=== PATIENT | female | born 1935 | race Caucasian/White ===

== ENCOUNTER 2018-04-24 16:11 | Inpatient (IN) | payer MEDICARE, BC ==
[~2018-04-24] VITALS: Ht 157.5 cm; Wt 63.5 kg
[2018-04-24 16:48] VITALS: BP 142/84
[2018-04-24] MEDS ORDERED: NITROSTAT0.4 MG PO (17:53)
[2018-04-24] MEDS ORDERED: SERTRALINE HCL50 MG PO (17:53)
[2018-04-24] MEDS ORDERED: LEVOTHYROXINE88 MCG PO (18:12)
[2018-04-24] MEDS ORDERED: PREDNISONE5 MG PO (18:12)
[2018-04-24] MEDS ORDERED: ARICEPT5 MG PO (18:12)
[2018-04-24] MEDS ORDERED: CITALOPRAM HBR20 MG PO (18:12)
[2018-04-24] MEDS ORDERED: LABETALOL HCL100 MG PO (18:12)
[2018-04-24] MEDS ORDERED: NAMENDA10 MG PO (18:12)
[2018-04-24] MEDS ORDERED: POTASSIUM CHLO20 ME1 PO (18:12)
[2018-04-24] MEDS ORDERED: ESTRADIOL1 MG PO (18:12)
[2018-04-24] MEDS ORDERED: COMBIVENT RESPIM4 GM IH (18:12)
[2018-04-24 18:17] VITALS: BP 142/84
--- NOTE | 2018-04-24 18:52 | Diagnostic Imaging Report ---
Examination: Single AP view of the chest. COMPARISON: None. INDICATION: Asbestos exposure IMPRESSION: 1. Lines and Tubes: Left upper chest 2 lead cardiac device, with distal tips projecting in the region of the right atrium and right ventricle. 2. Lungs are well-inflated. Mild prominence of the interstitial markings bilaterally, which may reflect chronic interstitial changes. No consolidation or pulmonary edema. 3. Cardiomediastinal silhouette is normal. Pulmonary vasculature is normal. 4. No acute bony abnormalities. Signed by: Dr. Jose D Laura M.D. on 04/24/2018 6:49 PM
[2018-04-24 19:57] LABS: BASOPHILS % 0.2 % (0.0-1.0); EOSINOPHILS % 0.1 % (0.0-6.0); HEMATOCRIT 37.5 % (34.2-44.1); LYMPHOCYTES # (AUTO) 1.3 (1.0-3.2); LYMPHOCYTES % 13.4 % (18.0-39.1); MEAN CORPUSCULAR HGB CONC 34.7 g/dL (31-35); MEAN CORPUSCULAR VOLUME 95.2 fL (81-99); MONOCYTES # (AUTO) 0.3 (0.2-0.8); MONOCYTES % 3.1 % (4.4-11.3); NEUTROPHILS # (AUTO) 8.2 (2.1-6.9); NEUTROPHILS % 82.6 % (38.7-80.0); PLATELET COUNT 261 x10e3/uL (140-360); RED BLOOD COUNT 3.94 x10e6/uL (3.6-5.1)
[2018-04-24 20:00] VITALS: BP 174/96
[2018-04-24 20:19] LABS: ALBUMIN 3.2 g/dL (3.5-5.0); ALBUMIN/GLOBULIN RATIO 1.1 (0.8-2.0); ANION GAP 14.2 mmol/L (8-16); CALCIUM 9.2 mg/dL (8.4-10.2); CREATININE, SERUM 1.23 mg/dL (0.57-1.11); POTASSIUM 4.2 mmol/L (3.5-5.1)
[2018-04-25] VITALS (8 sets, daily range): BP systolic 138–189; BP diastolic 63–96
[2018-04-25] MEDS ORDERED: LABETALOL HCL100 MG PO ×2 (01:24→01:32)
[2018-04-25] MEDS ORDERED: POTASSIUM99 M1 PO (01:35)
[2018-04-25] MEDS ORDERED: POTASSIUM CHLO10 ME1 PO (01:41)
[2018-04-25 07:36] LABS: BASOPHILS % 0.2 % (0.0-1.0); EOSINOPHILS # (AUTO) 0.1 (0.0-0.4); EOSINOPHILS % 1.4 % (0.0-6.0); HEMATOCRIT 35.2 % (34.2-44.1); HEMOGLOBIN 12.1 g/dL (12.0-16.0); LYMPHOCYTES # (AUTO) 2.5 (1.0-3.2); LYMPHOCYTES % 28.3 % (18.0-39.1); MEAN CORPUSCULAR HEMOGLOBIN 32.6 pg (28-32); MEAN CORPUSCULAR HGB CONC 34.4 g/dL (31-35); MEAN CORPUSCULAR VOLUME 94.9 fL (81-99); MONOCYTES # (AUTO) 0.6 (0.2-0.8); MONOCYTES % 6.9 % (4.4-11.3); NEUTROPHILS # (AUTO) 5.5 (2.1-6.9); NEUTROPHILS % 62.6 % (38.7-80.0); PLATELET COUNT 242 x10e3/uL (140-360); RED BLOOD COUNT 3.71 x10e6/uL (3.6-5.1); RED CELL DISTRIBUTION WIDTH 13.8 % (11.7-14.4)
[2018-04-25 07:54] LABS: ALBUMIN 3.1 g/dL (3.5-5.0); ALBUMIN/GLOBULIN RATIO 1.3 (0.8-2.0); ANION GAP 15.6 mmol/L (8-16); CALCIUM 9.5 mg/dL (8.4-10.2); CREATININE, SERUM 0.94 mg/dL (0.57-1.11); POTASSIUM 3.6 mmol/L (3.5-5.1)
[2018-04-25] MEDS: PREDNISONE 5 MG TAB PO SCH (09:00)
[2018-04-25] MEDS ORDERED: LABETALOL HCL 100 MG TAB PO SCH ×2 (09:00)
[2018-04-25] MEDS: LEVOTHYROXINE SODIUM 88 MCG TAB PO SCH (09:00)
[2018-04-25] MEDS ORDERED: MEROPENEM 500MG 500 MG in SODIUM CHLORIDE 0.9% 50ML 50 ML IV SCH (09:30)
[2018-04-25] MEDS: MEMANTINE 10 MG TAB PO SCH ×2 (09:30→16:56)
[2018-04-25] MEDS ORDERED: ACETAMINOPHEN 325 MG TAB PO PRN (09:30)
[2018-04-25] MEDS: CITALOPRAM HYDROBROMIDE 20 MG TAB PO SCH (09:30)
[2018-04-25] MEDS: ESTRADIOL 1 MG TAB PO SCH (09:30)
[2018-04-25] MEDS ORDERED: VANCOMYCIN 1GM/NS 250 ML 250 ML IV SCH (10:00)
[2018-04-25] MEDS: SERTRALINE HCL 50 MG TAB PO SCH (10:23)
[2018-04-25] MEDS: SODIUM CHLORIDE 0.9% 1000ML 1,000 ML IV SCH (10:23)
[2018-04-25] MEDS: MEROPENEM 500 MG VIAL IV SCH ×2 (10:23→18:26)
[2018-04-25] MEDS: POTASSIUM CHLORIDE 10 MEQ TABCR PO SCH ×2 (10:24→16:56)
--- NOTE | 2018-04-25 11:32 | History and Physical ---
CHIEF COMPLAINT: Urinary tract infection, whitish discharge. HISTORY OF PRESENT ILLNESS: This is an 82-year-old female who has a past medical history of chronic UTIs in the past, bilateral lymphedema who follows up with Dr. Young urology, presented yesterday to his office with complaint of whitish discharge from her urine output that began about 3 or 4 days ago. Patient was seen and evaluated, and interviewed at bedside. She currently denies any fevers at home, cough or congestion. Reports having a whitish discharge for the last 4 days. She has had chronic UTIs in the past. She is allergic to a lot of oral antibiotics. Patient was sent here for further management and care and initiation of IV antibiotics. Patient was seen and evaluated at bedside. Currently doing well with no other complaints at this time. Her vital signs are stable. REVIEW OF SYSTEMS: Pertinent positive dysuria, whitish discharge in her urine. Pertinent negatives: Denies any chest pain, palpitation, nausea, vomiting, diarrhea, hematuria, frequency, urgency, lightheadedness, dizziness, abdominal pain, headache, shortness of breath, cough, congestion, fever or any other complaints. The rest of the 14-point review of systems are reviewed with the patient and are negative. ALLERGIES: TO ALL ORAL ANTIBIOTICS, CODEINE, IODINE, PREGABALIN, AND SOLIFENACIN. PAST MEDICAL HISTORY: Reports having lymphedema, has hypertension, has hypothyroidism, Alzheimer's, dementia, and depression. PAST SURGICAL HISTORY: Reports none. FAMILY HISTORY: Hypertension and diabetes. SOCIAL HISTORY: No drugs. No alcohol. Does not smoke. Good social support. LABORATORY FINDINGS: White count is 8.7, hemoglobin 12, hematocrit 35, and platelets of 242. Chemistry: Sodium 140, potassium 3.6, chloride 104, bicarb 24, anion gap of 15, BUN is 24, creatinine is 0.9, glucose 94, and calcium 9.5. Total bilirubin is 0.7, AST 14, ALT 10, alk phos 58, total protein 5.4, and albumin 3.1. MICROBIOLOGY: Blood cultures pending Urine culture is pending. IMAGING STUDIES: Chest x-ray shows normal findings. PHYSICAL EXAM VITAL SIGNS: Temperature is 97.4, pulse is 87, respiratory rate is 19, blood pressure is 149/90, and pulse ox 94% on room air. GENERAL: Not in acute distress, alert and oriented times 3, and cooperative on exam. HEENT: Head is normocephalic and atraumatic. Eyes: Pupils are equal, round, and reactive to light bilaterally. Extraocular movements are intact bilaterally. NECK: Supple with good range of motion throughout. No evidence of any erythema or exudates and the posterior pharynx has poor dentition. PULMONARY: Clear to auscultation bilaterally. No wheezing, no rales, no rhonchi, and no crackles appreciated. CARDIOVASCULAR: Positive S1 and S2. No murmurs, rubs, or gallops appreciated. ABDOMEN: Soft, nondistended, and nontender to palpation. Bowel sounds present. MUSCULOSKELETAL: Strength is 5/5 throughout. No evidence of any musculoskeletal deficit on examination. No weakness appreciated. NEUROLOGIC: Cranial nerves II through XII are grossly intact. No evidence of any neurologic deficit on exam. SKIN: Intact. Warm to touch. Good capillary refill. PSYCHIATRIC: Normal affect and mood. EXTREMITIES: She does have trace to 1+ pedal edema and also has lymphedema with bilateral lower extremities redness concerning for cellulitis. IMPRESSIONS 1. Urinary tract infection with concerns of whitish discharge. 2. Bilateral lower extremity cellulitis with lymphedema. 3. History of Alzheimer's dementia. 4. Hypothyroidism. 5. Hypertension. PLAN: At this time, patient will be started on IV vancomycin and Merrem. ID was consulted. Blood and urine cultures are pending. We are going to resume her home medications. Patient refuses labetalol for now. We are going to put her on p.r.n. Vasotec for systolic blood pressure greater than 180. She will be on IV fluids. We are going to put TIMBO hose to the bilateral lower extremities and start her on Lovenox 40 mg subcutaneous daily. She will be on IV fluids as well as the patient looks dehydrated on exam. We are going to repeat labs in the morning. ID has been consulted as well. We will also get PT and OT involved as well in her case. Job#: [id number] STACY
[2018-04-25 11:57] LABS: CLARITY,URINE SL CLOUDY (CLEAR); COLOR,URINE YELLOW (YELLOW); NITRITE,URINE POSITIVE (NEGATIVE)
[2018-04-25 11:58] LABS: BILIRUBIN,URINE NEGATIVE (NEGATIVE); KETONES,URINE NEGATIVE (NEGATIVE); LEUKOCYTE ESTERASE ,URINE 1+ (NEGATIVE); PROTEIN,URINE DIPSTICK NEGATIVE (NEGATIVE); URINE UROBILINOGEN 0.2 mg/dL (0.2 - 1)
[2018-04-25 12:01] LABS: BACTERIA,URINE MODERATE /HPF; EPITHELIAL CELLS,URINE FEW /LPF
[2018-04-25] MEDS: ENOXAPARIN SOD INJ 40 MG/0.4 ML SYR SC SCH ×2 (16:56→16:58)
--- NOTE | 2018-04-25 20:53 | Consultation ---
DATE OF CONSULTATION: INFECTIOUS DISEASE CONSULTATION REASON FOR CONSULTATION: UTI. HISTORY OF PRESENT ILLNESS: This is a patient who is a very pleasant 82-year-old white female with history of chronic UTI in the past, recurrent UTI. Comes in with suprapubic pain, fever, chills. The patient has history of chronic UTI. She has been seen by Dr. Hernandez, urology. Comes in with discomfort in the suprapubic area, urgency, frequency and not feeling well. The patient was admitted. When she came, she had history of UTI, recurrent before. Patient was admitted. Blood cultures ordered. Urine cultures ordered. She is currently lying in bed. PAST MEDICAL HISTORY: UTI and hypertension. PAST SURGICAL HISTORY: She denies. ALLERGIES: NKA. SOCIAL HISTORY: There is no smoking, drug abuse, alcohol use. FAMILY HISTORY: Otherwise noncontributory. REVIEW OF SYSTEMS: HEENT: Negative. PULMONARY: Negative. CARDIAC: Negative. : As above. LABORATORY DATA: Reviewed. Her white count 8.7, hemoglobin 12, hematocrit 35. Her sodium 142, potassium 3.6, creatinine 0.94. PHYSICAL EXAMINATION: GENERAL: She is currently alert, oriented, does not seem to be in acute distress. VITALS: Stable. Currently afebrile. HEENT: She does not appear icteric. NECK: Supple. CHEST: Clear. HEART: S1 and S2. No S3, no S4. No murmur. ABDOMEN: Soft. Bowel sounds present. No tenderness. EXTREMITIES: No edema. SKIN: No rash. IMPRESSION: Probably urinary tract infection. Agree with urine cultures, blood cultures. She has already been started on meropenem. Discontinue vancomycin. Will observe her over next 24 hours. Await culture and sensitivity. Further recommendations to follow. Job#: [id number] EV
[2018-04-25] MEDS: DONEPEZIL HCL 5 MG TAB PO SCH (21:30)
[2018-04-26] VITALS (8 sets, daily range): BP systolic 137–178; BP diastolic 70–83
[2018-04-26] MEDS: MEROPENEM 500 MG VIAL IV SCH ×4 (00:09→18:16)
[2018-04-26] MEDS: SODIUM CHLORIDE 0.9% 1000ML 1,000 ML IV SCH ×3 (00:09→15:00)
[2018-04-26] MEDS: ENALAPRILAT IV INJ 1.25 MG/ML VIAL IV PRN ×2 (04:35→23:59)
[2018-04-26] MEDS: LEVOTHYROXINE SODIUM 88 MCG TAB PO SCH (08:27)
[2018-04-26] MEDS: POTASSIUM CHLORIDE 10 MEQ TABCR PO SCH ×2 (08:27→16:55)
[2018-04-26] MEDS: ESTRADIOL 1 MG TAB PO SCH (08:27)
[2018-04-26] MEDS: PREDNISONE 5 MG TAB PO SCH (08:27)
[2018-04-26] MEDS: CITALOPRAM HYDROBROMIDE 20 MG TAB PO SCH (08:27)
[2018-04-26] MEDS: SERTRALINE HCL 50 MG TAB PO SCH (08:27)
[2018-04-26] MEDS: MEMANTINE 10 MG TAB PO SCH ×2 (08:27→16:55)
[2018-04-26] MEDS: AMLODIPINE BESYLATE 10 MG TAB PO SCH (10:15)
--- NOTE | 2018-04-26 10:28 | Progress Note ---
DATE: April 26, 2018 INTERNAL MEDICINE PROGRESS NOTE SUBJECTIVE: The patient is doing very well today with no complaints. She is tolerating diet well. She is working with physical therapy. Her urine culture is positive for gram-negative rods. OBJECTIVE VITAL SIGNS: Temperature is 98.5, pulse 72, respiratory rate 19, blood pressure was elevated at 170/78, pulse ox is 95%. She is on room air. GENERAL: Not in acute distress. Alert and oriented times 3. Cooperative on examination. HEENT: Head is normocephalic and atraumatic. Eyes: Pupils equal, round and reactive to light bilaterally. Extraocular movements intact bilaterally. NECK: Supple. Good range of motion. Throat with no evidence of any erythema or exudates in the posterior pharynx. Has poor dentition. PULMONARY: Clear to auscultation bilaterally. No wheezing. No rales. No rhonchi. No crackles appreciated. CARDIOVASCULAR: Positive S1 and S2. No murmurs, rubs or gallops appreciated. ABDOMEN: Soft, nondistended and nontender to palpation. Bowel sounds present. MUSCULOSKELETAL: Strength is 5/5 throughout. No evidence of any muscle deficit on examination. No weakness appreciated. NEUROLOGICAL: Cranial nerves II-XII are grossly intact. No evidence of any neurological deficits on exam. SKIN: Intact. Warm to touch. Good cap refill. PSYCHIATRIC: Normal affect and mood. EXTREMITIES: No edema. Good range of motion throughout. LAB FINDINGS: Show a white count of 8.7, hemoglobin 12, hematocrit 35, and platelets of 242,000. Chemistry: Sodium 140, potassium 3.6, chloride 104, bicarb 24, anion gap of 15, BUN is 24, creatinine is 0.94. Calcium is 9.5. LFTs were normal. Urinalysis consistent with UTI. MICROBIOLOGY: Blood cultures negative. No growth to date. Urine culture shows gram-negative bacilli. IMAGING STUDIES: None. IMPRESSION 1. Urinary tract infection, now gram-negative rods: Pending sensitivity. 2. Bilateral lower extremity cellulitis with lymphedema. 3. History of Alzheimer dementia. 4. Hypothyroidism. 5. Hypertension. PLAN: At this time, continue with IV antibiotics of Merrem and vancomycin was discontinued by ID. Will continue to follow ID recommendations. Urine culture is positive pending sensitivity and identification. Blood cultures are negative. Blood pressure was elevated. Will start her on Norvasc 10 mg daily, first dose now. We are going to get a.m. labs. Continue with DVT prophylaxis with Lovenox. Continue with PT and OT. Job#: [id number] RI
[2018-04-26] MEDS: ENOXAPARIN SOD INJ 40 MG/0.4 ML SYR SC SCH (16:56)
[2018-04-26] MEDS: DONEPEZIL HCL 5 MG TAB PO SCH (20:41)
[2018-04-27] VITALS (7 sets, daily range): BP systolic 128–198; BP diastolic 67–91
[2018-04-27 05:03] LABS: BASOPHILS % 0.3 % (0.0-1.0); EOSINOPHILS # (AUTO) 0.3 (0.0-0.4); EOSINOPHILS % 2.6 % (0.0-6.0); HEMATOCRIT 37.9 % (34.2-44.1); HEMOGLOBIN 12.9 g/dL (12.0-16.0); LYMPHOCYTES # (AUTO) 2.6 (1.0-3.2); LYMPHOCYTES % 27.3 % (18.0-39.1); MEAN CORPUSCULAR VOLUME 96.9 fL (81-99); MONOCYTES # (AUTO) 0.7 (0.2-0.8); MONOCYTES % 6.7 % (4.4-11.3); NEUTROPHILS # (AUTO) 6.1 (2.1-6.9); NEUTROPHILS % 62.7 % (38.7-80.0); PLATELET COUNT 253 x10e3/uL (140-360); RED BLOOD COUNT 3.91 x10e6/uL (3.6-5.1); RED CELL DISTRIBUTION WIDTH 14.2 % (11.7-14.4)
[2018-04-27 05:25] LABS: ANION GAP 14.9 mmol/L (8-16); BLOOD UREA NITROGEN 15 mg/dL (7-26); BUN/CREATININE RATIO 19 (6-25); CALCIUM 9.4 mg/dL (8.4-10.2); CARBON DIOXIDE 23 mmol/L (22-29); CHLORIDE 108 mmol/L (98-107); CREATININE, SERUM 0.77 mg/dL (0.57-1.11); EST GLOMERULAR FILTRATION RATE > 60 ML/MIN (60-); GLUCOSE 86 mg/dL (74-118); POTASSIUM 3.9 mmol/L (3.5-5.1); SODIUM 142 mmol/L (136-145)
[2018-04-27] MEDS: MEROPENEM 500 MG VIAL IV SCH ×2 (06:10)
[2018-04-27] MEDS: ENALAPRILAT IV INJ 1.25 MG/ML VIAL IV PRN ×2 (06:10)
[2018-04-27] MEDS: ESTRADIOL 1 MG TAB PO SCH (09:08)
[2018-04-27] MEDS: CITALOPRAM HYDROBROMIDE 20 MG TAB PO SCH (09:08)
[2018-04-27] MEDS: SERTRALINE HCL 50 MG TAB PO SCH (09:09)
[2018-04-27] MEDS: PREDNISONE 5 MG TAB PO SCH (09:09)
[2018-04-27] MEDS: LEVOTHYROXINE SODIUM 88 MCG TAB PO SCH (09:09)
[2018-04-27] MEDS: POTASSIUM CHLORIDE 10 MEQ TABCR PO SCH ×2 (09:09→17:02)
[2018-04-27] MEDS: MEMANTINE 10 MG TAB PO SCH ×2 (09:09→17:02)
[2018-04-27] MEDS: AMLODIPINE BESYLATE 10 MG TAB PO SCH (09:09)
--- NOTE | 2018-04-27 10:17 | Progress Note ---
DATE: April 27, 2018 INTERNAL MEDICINE PROGRESS NOTE SUBJECTIVE: The patient is doing well with no complaints. Her urine culture is positive for E. coli pansensitive. She is not interested in starting on any oral antibiotics, but I convinced her that if we could start something here, we could monitor her over the next 1 or 2 days. If she tolerates it well, then she can go home on that antibiotic. Discussed with nursing staff. OBJECTIVE VITAL SIGNS: Temperature is 97.3. Her blood pressure is 151/80, but it was high overnight. LABS: White count 9.6, hemoglobin 12.9, hematocrit 38, platelets 253. Chemistries: Sodium 142, potassium 3.9, chloride 108, bicarb 23, anion gap 14, BUN 15, creatinine 0.77, glucose 86, calcium 9.4. MICROBIOLOGY: E. coli positive, pansensitive. Blood cultures were negative. IMAGING STUDIES: None. PHYSICAL EXAMINATION GENERAL: Not in acute distress. Alert and oriented times 3. Cooperative on examination. HEENT: Head is normocephalic and atraumatic. Eyes: Pupils are equal and reactive to light bilaterally. Extraocular movements intact bilaterally. NECK: Supple. Good range of motion. THROAT: No evidence of any erythema or exudates in the posterior pharynx, has poor dentition. PULMONARY: Clear to auscultation bilaterally. No wheezing. No rales. No rhonchi. No crackles appreciated. CARDIOVASCULAR: Positive S1 and S2. No murmurs, rubs or gallops appreciated. ABDOMEN: Soft, nondistended and nontender to palpation. Bowel sounds present. MUSCULOSKELETAL: Strength is 5/5 throughout. No evidence of any muscle deficit on examination. No weakness appreciated. NEUROLOGICAL: Cranial nerves II-XII are grossly intact. No evidence of any neurological deficits on exam. SKIN: Intact. Warm to touch. Good cap refill. PSYCHIATRIC: Normal affect and mood. EXTREMITIES: No edema. Good range of motion throughout. IMPRESSION 1. Urinary tract infection with Escherichia coli pansensitive. 2. Bilateral lower extremity cellulitis with lymphedema. 3. History of Alzheimer dementia. 4. Hypothyroidism. 5. Hypertension. PLAN: At this time, I will have ID discuss about oral regimen for her antibiotics. I seemed to convince her, and I told her I will monitor her here while she is in the hospital. She reports she is allergic to every known antibiotic orally. I also discussed this with the nurse. Her blood pressure was elevated overnight, and I will add lisinopril in the eveningtime. Continue with Norvasc. Her labs are stable. Continue with PT and OT. Will continue to monitor very closely. Job#: [id number]
[2018-04-27] MEDS: SODIUM CHLORIDE 0.9% 1000ML 1,000 ML IV SCH ×3 (12:11→22:05)
[2018-04-27] MEDS: CEFTRIAXONE SOD 1 GM VIAL IV SCH ×2 (12:18→22:05)
[2018-04-27] MEDS: CEPHALEXIN 500 MG CAP PO SCH ×2 (12:24→22:05)
[2018-04-27] MEDS: ENOXAPARIN SOD INJ 40 MG/0.4 ML SYR SC SCH (17:00)
[2018-04-27] MEDS: LISINOPRIL 10 MG TAB PO SCH (22:05)
[2018-04-27] MEDS: DONEPEZIL HCL 5 MG TAB PO SCH (22:05)
[2018-04-27] MEDS: ONDANSETRON HCL INJ 2 MG/ML VIAL IV PRN (22:30)
[2018-04-28] VITALS (8 sets, daily range): BP systolic 124–191; BP diastolic 64–90
[2018-04-28] MEDS: ONDANSETRON HCL INJ 2 MG/ML VIAL IV PRN ×2 (06:39→20:45)
[2018-04-28] MEDS: CEPHALEXIN 500 MG CAP PO SCH ×3 (06:56→22:00)
[2018-04-28] MEDS: ESTRADIOL 1 MG TAB PO SCH (09:56)
[2018-04-28] MEDS: CEFTRIAXONE SOD 1 GM VIAL IV SCH ×2 (09:56→20:45)
[2018-04-28] MEDS: CITALOPRAM HYDROBROMIDE 20 MG TAB PO SCH (09:56)
[2018-04-28] MEDS: LEVOTHYROXINE SODIUM 88 MCG TAB PO SCH (09:57)
[2018-04-28] MEDS: MEMANTINE 10 MG TAB PO SCH ×2 (09:57→16:49)
[2018-04-28] MEDS: SODIUM CHLORIDE 0.9% 1000ML 1,000 ML IV SCH ×2 (09:57→16:49)
[2018-04-28] MEDS: POTASSIUM CHLORIDE 10 MEQ TABCR PO SCH ×2 (09:57→16:49)
[2018-04-28] MEDS: SERTRALINE HCL 50 MG TAB PO SCH (09:57)
[2018-04-28] MEDS: PREDNISONE 5 MG TAB PO SCH (09:57)
[2018-04-28] MEDS: AMLODIPINE BESYLATE 10 MG TAB PO SCH (09:57)
--- NOTE | 2018-04-28 11:03 | Progress Note ---
DATE: April 28, 2018 INTERNAL MEDICINE PROGRESS NOTE SUBJECTIVE: Patient is doing well today with no complaints. She was started on oral Keflex. She initially was having some nausea, but was given anti-nausea medication which helped and resolved it. Patient is tolerating diet well. Patient agreed to be discharged tomorrow. LAB FINDINGS: Show white count was 9.6, hemoglobin 12.9, hematocrit is 38, platelets of 253. Chemistries: Sodium 142, potassium 3.9, chloride 108, bicarb 23, anion gap of 14, BUN 15, creatinine is 0.77, glucose is 86, calcium 9.4. MICROBIOLOGY: Urine culture positive for E. coli, pansensitive. PHYSICAL EXAMINATION VITAL SIGNS: Temperature is 97.6, pulse 78, respiratory rate is 18, blood pressure is 140/76. GENERAL: Not in acute distress, alert and oriented x3, cooperative on examination. HEENT: Head normocephalic, atraumatic. Eyes: Pupils equal and reactive to light bilaterally. Extraocular movements intact bilaterally. NECK: Supple. Good range of motion. THROAT: No evidence of any erythema or exudates in the posterior pharynx, has poor dentition. PULMONARY: Clear to auscultation bilaterally. No wheezing, no rales, no rhonchi. No crackles appreciated. CARDIOVASCULAR: Positive S1 and S2. No murmurs, rubs or gallops appreciated. ABDOMEN: Soft, nondistended, nontender to palpation. Bowel sounds present. MUSCULOSKELETAL: Strength is 5/5 throughout. No evidence of any muscle deficit on examination. No weakness appreciated. NEUROLOGICAL: Cranial nerves II-XII grossly intact. No evidence of any neurological deficits on exam. SKIN: Intact. Warm to touch. Good cap refill. PSYCHIATRIC: Normal affect and mood. EXTREMITIES: No edema. Good range of motion throughout. IMPRESSION 1. Urinary tract infection with Escherichia coli, pansensitive. 2. Bilateral lower extremity cellulitis with lymphedema. 3. History of Alzheimer's dementia. 4. Hypothyroidism. 5. Hypertension. PLAN: She is currently on oral Keflex, which works with oral Zofran. I discussed with the patient that she will be discharged tomorrow. She will have a ride available tomorrow morning. We are going to continue with same plan of care. Blood pressure is better controlled. We will continue with same regimen for antihypertensives. Continue to work with PT and OT. Continue same plan of care. Discussed with patient and nurse. Patient will be discharged tomorrow. Job#: [id number] LANDON
[2018-04-28] MEDS: ENOXAPARIN SOD INJ 40 MG/0.4 ML SYR SC SCH (16:49)
[2018-04-28] MEDS ORDERED: LACTOBACILLUS ACIDOPHILUS CAPSULE PO ONE (20:00)
[2018-04-28] MEDS: LISINOPRIL 10 MG TAB PO SCH (20:45)
[2018-04-28] MEDS: DONEPEZIL HCL 5 MG TAB PO SCH (20:45)
[2018-04-29] VITALS: BP 164/84
[2018-04-29] MEDS: SODIUM CHLORIDE 0.9% 1000ML 1,000 ML IV SCH (03:30)
[2018-04-29 05:26] VITALS: BP 160/76
[2018-04-29] MEDS: ONDANSETRON HCL INJ 2 MG/ML VIAL IV PRN (05:35)
[2018-04-29 05:43] LABS: BASOPHILS # (AUTO) 0.1 (0.0-0.1); BASOPHILS % 0.5 % (0.0-1.0); EOSINOPHILS # (AUTO) 0.3 (0.0-0.4); EOSINOPHILS % 3.1 % (0.0-6.0); HEMATOCRIT 38.2 % (34.2-44.1); HEMOGLOBIN 12.9 g/dL (12.0-16.0); LYMPHOCYTES # (AUTO) 2.5 (1.0-3.2); LYMPHOCYTES % 25.7 % (18.0-39.1); MEAN CORPUSCULAR HEMOGLOBIN 32.7 pg (28-32); MEAN CORPUSCULAR HGB CONC 33.8 g/dL (31-35); MEAN CORPUSCULAR VOLUME 96.7 fL (81-99); MONOCYTES # (AUTO) 0.6 (0.2-0.8); NEUTROPHILS # (AUTO) 6.3 (2.1-6.9); NEUTROPHILS % 64.4 % (38.7-80.0); PLATELET COUNT 233 x10e3/uL (140-360); RED BLOOD COUNT 3.95 x10e6/uL (3.6-5.1); RED CELL DISTRIBUTION WIDTH 13.8 % (11.7-14.4)
[2018-04-29 06:02] LABS: ANION GAP 14.1 mmol/L (8-16); BLOOD UREA NITROGEN 15 mg/dL (7-26); BUN/CREATININE RATIO 19 (6-25); CALCIUM 9.3 mg/dL (8.4-10.2); CARBON DIOXIDE 23 mmol/L (22-29); CHLORIDE 106 mmol/L (98-107); CREATININE, SERUM 0.81 mg/dL (0.57-1.11); EST GLOMERULAR FILTRATION RATE > 60 ML/MIN (60-); GLUCOSE 83 mg/dL (74-118); POTASSIUM 4.1 mmol/L (3.5-5.1); SODIUM 139 mmol/L (136-145)
[2018-04-29] MEDS: CEPHALEXIN 500 MG CAP PO SCH (06:30)
[2018-04-29] MEDS: CEFTRIAXONE SOD 1 GM VIAL IV SCH (09:00)
[2018-04-29] MEDS ORDERED: LACTOBACILLUS ACIDOPHILUS CAPSULE PO SCH (09:00)
[2018-04-29 09:08] VITALS: BP 119/63
[2018-04-29] MEDS: MEMANTINE 10 MG TAB PO SCH (09:14)
[2018-04-29] MEDS: POTASSIUM CHLORIDE 10 MEQ TABCR PO SCH (09:14)
[2018-04-29] MEDS: CITALOPRAM HYDROBROMIDE 20 MG TAB PO SCH (09:14)
[2018-04-29] MEDS: ESTRADIOL 1 MG TAB PO SCH (09:14)
[2018-04-29] MEDS: PREDNISONE 5 MG TAB PO SCH (09:15)
[2018-04-29] MEDS: LEVOTHYROXINE SODIUM 88 MCG TAB PO SCH (09:15)
[2018-04-29] MEDS: SERTRALINE HCL 50 MG TAB PO SCH (09:15)
[2018-04-29] MEDS: AMLODIPINE BESYLATE 10 MG TAB PO SCH (09:28)
--- NOTE | 2018-04-30 01:30 | Discharge Summary ---
FINAL DISCHARGE DIAGNOSES 1. Urinary tract infection. 2. Bilateral lower extremity cellulitis with lymphedema, improved. 3. History of Alzheimer's dementia. 4. Hypothyroidism. 5. Hypertension. CONSULTANTS: Urology and infectious disease. VITAL SIGNS: Temperature is 99, pulse 81, respiratory rate is 18, blood pressure 119/63, and pulse ox is 95% on room air. LAB FINDINGS: White count 9.8, hemoglobin 12.9, hematocrit 38, and platelets of 233,000. Chemistry: Sodium 139, potassium 4.1, chloride 106, bicarb 23, anion gap of 14, BUN is 15, creatinine 0.81, glucose is 83, and calcium is 9.3. Urinalysis was consistent with a UTI. MICROBIOLOGY: Urine culture positive for E. coli pansensitive. Blood cultures negative. IMAGING STUDIES: Chest x-ray was found to be negative. HOSPITAL COURSE: This is an 82-year-old female who was sent in by the urologist as a direct admission due to underlying urinary tract infection. ID and urology were consulted. Patient was on IV antibiotics. Blood cultures were negative. Urine cultures were positive for E. coli. Patient did extremely well while in the hospital. She was started on oral Keflex which she had no problems. She reports having some allergies to oral antibiotics, but we kept her here for more than 48 hours on Keflex but with no allergies or any reactions. Patient did well on that new medication. Patient has been cleared by the consultants for discharge home. On the day of discharge, vital signs stable, labs reviewed and stable. The patient was seen, evaluated and examined thoroughly on the day of discharge. No other complaints. Patient verbalized understanding and agrees to plan of care to follow up accordingly as an outpatient with primary care physician in 1 week and urologist in 1 week's time. MEDICATIONS: See med reconciliation form including 1. Keflex 500 mg capsules 1 tab t.i.d. for 10 days. 2. Zofran 4 mg ODT 1 tab maybe 8 hours as needed for nausea. DISPOSITION: Home. CONDITION: Stable. DIET: Heart healthy. In the event of any worsening symptoms, the patient was advised to come back to the ED for further evaluation. Discharge summary took greater than 35 minutes. AMEENA GLEZ MD Job#: [id number] CF
== END 2018-04-29 10:41 | disposition home health service (06) | DRG 689 ==
LOC: MED/SURG2 16:14
PROVIDERS: ADMIT Internal Medicine; ATTEND Internal Medicine
DX: N39.0 Urinary tract infection, site not specified (principal); N18.6 End stage renal disease; L03.116 Cellulitis of left lower limb; L03.115 Cellulitis of right lower limb; I12.0 Hypertensive chronic kidney disease with stage 5 chronic kidney disease or end stage renal disease; G30.9 Alzheimer's disease, unspecified; F02.80 Dementia in other diseases classified elsewhere, unspecified severity, without behavioral disturbance, psychotic disturbance, mood disturbance, and anxiety; E03.9 Hypothyroidism, unspecified; B96.20 Unspecified Escherichia coli [E. coli] as the cause of diseases classified elsewhere; F32.9 Major depressive disorder, single episode, unspecified; I89.0 Lymphedema, not elsewhere classified; Z79.82 Long term (current) use of aspirin; Z79.52 Long term (current) use of systemic steroids; M41.9 Scoliosis, unspecified; M31.6 Other giant cell arteritis; Z99.2 Dependence on renal dialysis; Z95.0 Presence of cardiac pacemaker; H91.8X3 Other specified hearing loss, bilateral; Z86.73 Personal history of transient ischemic attack (TIA), and cerebral infarction without residual deficits; M35.3 Polymyalgia rheumatica; D51.0 Vitamin B12 deficiency anemia due to intrinsic factor deficiency; K21.9 Gastro-esophageal reflux disease without esophagitis
CPT/HCPCS: 36415; 71045; 80048; 80053; 81001; 82948; 85025; 87040; 87086; 87186; 93041; 97139; J0696; J1650; J2185; J2405; J3370; J7030; J7512

== ENCOUNTER → 2022-05-09 | Outpatient (CLI) | payer MEDICARE, BC ==
[~2022-05-09] MED LIST: ARICEPT5 MG PO; CITALOPRAM HBR20 MG PO; COMBIVENT RESPIM4 GM IH; ESTRADIOL1 MG PO; LABETALOL HCL100 MG PO; LEVOTHYROXINE88 MCG PO; NAMENDA10 MG PO; NITROSTAT0.4 MG PO; POTASSIUM CHLO10 ME1 PO; POTASSIUM CHLO20 ME1 PO; POTASSIUM99 M1 PO; PREDNISONE5 MG PO; SERTRALINE HCL50 MG PO
== END ==
LOC: RAD 14:12
PROVIDERS: ATTEND Internal Medicine Critical Care Medicine
DX: J44.9 Chronic obstructive pulmonary disease, unspecified (principal)
CPT/HCPCS: 71046